=== PATIENT | male | born 1960 | race Caucasian/White ===

== ENCOUNTER 2018-02-27 10:28 | Emergency (ER) | payer BC ==
[2018-02-27] MEDS ORDERED: Midazolam HCl 5 mg/ml Vial ONE (10:57)
[2018-02-27] MEDS ORDERED: Fentanyl 100 MCG/2 ML VIAL ONE (10:59)
[2018-02-27 11:11] LABS: #Basophils 0.1 thou/uL (0.0-0.2); #Eosinphils 0.1 thou/uL (0.0-0.7); #Lymphocytes 2.5 thou/uL (1.20-3.40); #Monocytes 0.7 thou/uL (0.11-0.59); #Neutrophils 6.5 thou/uL (1.40-6.50); %Basophils 0.8 % (0.0-1.0); %Eosinophils 0.9 % (0.0-10.0); %Lymphocytes 25.6 % (21.0-51.0); %Monocytes 6.6 % (0.0-10.0); %Neutrophils 66.2 % (42.0-75.0); Hemoglobin 17.2 g/dL (14.0-18.0); Mean Corpuscular HGB CONC 32.1 g/dL (32.0-36.0); Mean Corpuscular Hemoglobin 30.8 pg (27.0-31.0); Mean Corpuscular Volume 95.8 fL (78.0-98.0); Mean Platelet Volume 7.7 fL (7.4-10.4); Platelet Count 265 thou/uL (130-400); RBC Distribution Width 11.9 % (11.5-14.5); Red Blood Cell (RBC) Count 5.58 mill/uL (4.70-6.10); White Blood Cell (WBC) Count 9.8 thou/uL (4.8-10.8)
[2018-02-27] MEDS ORDERED: Metoprolol Tartrate 5 MG/5 ML VIAL ONE (11:18)
[2018-02-27 11:33] LABS: ALT (SGPT) 26 U/L (8-55); AST (SGOT) 25 U/L (5-34); Albumin 4.8 g/dL (3.5-5.0); Alkaline Phosphatase 70 U/L (40-150); Anion Gap 13 mmol/L (10-20); BUN (Urea Nitrogen) 19 mg/dL (8.4-25.7); Bilirubin, Total 0.8 mg/dL (0.2-1.2); CK (CPK) 137 U/L (30-200); Calc. Creatinine Clearance 0 mL/min (70-130); Calcium 10.1 mg/dL (7.8-10.44); Carbon Dioxide 24 mmol/L (22-29); Chloride 105 mmol/L (98-107); Estimated GFR-MDRD 80; Globulin 3.3 g/dL (2.4-3.5); Glucose 130 mg/dL (70-105); Lipase 89 U/L (8-78); Potassium 4.1 mmol/L (3.5-5.1); Protein, Total 8.1 g/dL (6.0-8.3); Sodium 138 mmol/L (136-145)
[2018-02-27 11:37] LABS: CKMB 3.4 ng/mL (0-6.6); Troponin I Less than 0.010 ng/mL (< 0.028)
--- NOTE | 2018-02-27 11:42 | RAD ---
PORTABLE CHEST 1 VIEW: Date: 02/27/18 Time: 1109 hours HISTORY: Chest pain. Atrial fibrillation. FINDINGS: Comparison made with exam of 02/18/11. The heart size is borderline. No confluent areas of consolidation, pneumothoraces, ramesh pulmonary ed maninder, or pleural effusions seen. IMPRESSION: No acute process. POS: JACKLYN
[2018-02-27] MEDS ORDERED: Apixaban 5 MG TAB PO SCH (12:45)
== END 2018-02-27 13:43 | disposition home or self-care (01) ==
LOC: ERS 10:28
DX: I48.91 Unspecified atrial fibrillation (principal); E78.5 Hyperlipidemia, unspecified; I10 Essential (primary) hypertension
CPT/HCPCS: 71045; 80053; 82553; 83690; 83880; 84484; 85025; 92960; 93005; 96374; 99152; 99153; J2250; J3010

== ENCOUNTER 2018-04-04 13:50 | Emergency (ER) | payer BC ==
[2018-04-04] MEDS ORDERED: Midazolam HCl 2 mg/2 ml Vial ONE (14:40)
[2018-04-04] MEDS ORDERED: Fentanyl 100 MCG/2 ML VIAL ONE (14:40)
[2018-04-04] MEDS ORDERED: Magnesium 2 GM/50 ML BAG (IN WATER) ONE (14:50)
[2018-04-04] MEDS ORDERED: Apixaban 5 MG TAB PO SCH (15:00)
== END 2018-04-04 16:34 | disposition home or self-care (01) ==
LOC: ERS 13:50
DX: I48.91 Unspecified atrial fibrillation (principal); E78.5 Hyperlipidemia, unspecified; I10 Essential (primary) hypertension; Z79.899 Other long term (current) drug therapy
CPT/HCPCS: 92960; 93005; 96361; 96374; 99152; J2250; J3010

== ENCOUNTER 2018-04-21 07:21 | Observation (INO) | payer BC ==
[2018-04-21 07:57] LABS: #Eosinphils 0.1 thou/uL (0.0-0.7); #Monocytes 0.6 thou/uL (0.11-0.59); %Basophils 0.3 % (0.0-1.0); %Eosinophils 1.5 % (0.0-10.0); %Lymphocytes 25.9 % (21.0-51.0); %Monocytes 7.3 % (0.0-10.0); %Neutrophils 64.9 % (42.0-75.0); Mean Corpuscular HGB CONC 33.2 g/dL (32.0-36.0); Mean Corpuscular Hemoglobin 31.8 pg (27.0-31.0); Mean Corpuscular Volume 95.8 fL (78.0-98.0); Mean Platelet Volume 7.1 fL (7.4-10.4); Platelet Count 234 thou/uL (130-400); RBC Distribution Width 11.7 % (11.5-14.5); Red Blood Cell (RBC) Count 4.71 mill/uL (4.70-6.10); White Blood Cell (WBC) Count 7.7 thou/uL (4.8-10.8)
[2018-04-21] MEDS ORDERED: Lidocaine 1% (PF) 30 ML VIAL ONE (07:58)
[2018-04-21 08:06] LABS: PTT 30.2 SEC (22.9-36.1); Prothrombin Time 13.7 SEC (12.0-14.7)
[2018-04-21 08:17] LABS: Anion Gap 13 mmol/L (10-20); BUN (Urea Nitrogen) 20 mg/dL (8.4-25.7); Calc. Creatinine Clearance 132 mL/min (70-130); Calcium 9.6 mg/dL (7.8-10.44); Carbon Dioxide 22 mmol/L (22-29); Chloride 107 mmol/L (98-107); Estimated GFR-MDRD 89; Glucose 123 mg/dL (70-105); Sodium 138 mmol/L (136-145)
[2018-04-21] MEDS ORDERED: Fentanyl 100 MCG/2 ML VIAL ONE (09:49)
[2018-04-21] MEDS ORDERED: Heparin 10,000 UNITS/1 ML VIAL ONE ×2 (09:49→12:28)
[2018-04-21] MEDS ORDERED: Promethazine HCl 25 MG/ML VIAL IM PRN (10:38)
[2018-04-21] MEDS ORDERED: Ondansetron HCl/PF 4 MG/2 ML Vial IVP PRN (10:38)
[2018-04-21] MEDS ORDERED: Promethazine HCl 25 MG/ML VIAL SLOW IVP PRN (10:38)
[2018-04-21] MEDS ORDERED: Meperidine HCl/PF 25 MG/ML VIAL SLOW IVP PRN (10:38)
[2018-04-21] MEDS ORDERED: Isoproterenol 0.2 MG/1 ML AMP ONE (10:41)
--- NOTE | 2018-04-21 10:42 | CT ---
CT CHEST WITHOUT CONTRAST: CTA CHEST WITH IV CONTRAST: HISTORY: Coronary mapping for ablation. FINDINGS: Please see the airplane mechanic's report for cardiac and coronary findings. Neurovascular calcifications without evidence of aneurysmal dilatation of the thoracic aorta. No int imal flap is seen to suggest dissection. No pleural or pericardial effusions are identified. The vi sualized lung oscar are clear. Degenerative changes are present in the spine. POS: JACKLYN
[2018-04-21] MEDS ORDERED: Phenylephrine HCL 10 MG/ML VIAL ONE (10:48)
[2018-04-21] MEDS ORDERED: Iopamidol 370 76% 100 ML VIAL ONE (10:59)
[2018-04-21] MEDS ORDERED: Heparin 25,000 units/D5W 500 ML ONE (11:35)
[2018-04-21] MEDS ORDERED: Protamine Sulfate 50 MG/5 ML VIAL ONE ×2 (12:40→13:12)
--- NOTE | 2018-04-21 12:43 | OP ---
DATE OF PROCEDURE: 04/21/2018 SURGEON: Dr. Terry Dominguez PROCEDURE: Electrophysiology study and radiofrequency ablation/pulmonary venous isolation. REFERRING PHYSICIAN: Dr. Alex Carney REASON FOR PROCEDURE: Mr. Spangler is a 57-year-old man with prior history of paroxysmal atrial arrhy thmias. He had a pulmonary venous isolation procedure in 2013. Now here with an episode of recurren ce, likely to eventually need medical therapy and highly symptomatic while having the episodes, curre ntly in sinus rhythm. The patient was on chronic Eliquis anticoagulation, it is on hold today this m orning only. PROCEDURE: The patient received deep sedation by Anesthesia specialist with general anesthesia. Aft er adequate level of sedation achieved, the left and right femoral vein was prepped and draped and an esthetized with subcutaneous lidocaine and with ultrasound guidance, the left and right femoral veins were cannulated x2, both sides. An 11 Russian and Preface sheath was introduced in the left femoral vein, which was used to advance the ice catheter to the right atrium which was used to minimize durin g the procedure, transseptal procedure as well as any effusion development during the case. The Pref ro catheter was used to advance the Duodeca catheter to the CS and right atrial position. The right venous sheath were used to advance a ThermoCool SF ST catheter which was used to image the right atr ium. Following that, the 8 Russian sheaths were exchanged to a SL1 transseptal sheath and under ultra sound guidance, transseptal punctures were performed x2. Heparin was administered at this point keep ing the ACT over 300 for targeting 350 throughout the case. A left atrial map was obtained with a 3D system. The left superior, left inferior and the right infe rior veins were found reconnected and also posterior wall was found to be connected. Ablation of all these areas were performed, isolation was achieved in all 4 veins and the posterior wall. Following that burst atrial pacing induced only nonsustained atrial fibrillation. Isuprel was administered an d upon venous reconnections were ablated. The total ablation time was 5 minutes 42 seconds. Total of 15 lesions delivered at 42 parker. The EP study was also performed with the following findings; baseline cycle length sinus rhythm 658 m illiseconds, OR 148 milliseconds, OR 63 milliseconds, QT 444 milliseconds, AH 95 milliseconds, HV 52 milliseconds. VA conduction test was performed with a Wenckebach cycle length V8 was 320 millisecond s and antegrade Wenckebach cycle was 318 seconds. No evidence of sleep apnea was seen. AV hilary ERP was found to be 600/280 milliseconds with no evidence of dual pathway physiology seen. CONCLUSION: 1. Successful re-isolation of pulmonary veins and the posterior wall. 2. Normal sinus and AV hilary function. 3. No sustained inducible arrhythmias. 4. No evidence of accessory pathway or dual AV hilary physiology present. PLAN: Resume anticoagulation for a period of 3 months and rhythm medication. Continue monitoring.
[2018-04-21 14:38] VITALS: BMI 32.1
[2018-04-21] MEDS ORDERED: PHENYLEPHRINE-NS 100 MCG/ML 10 ML SYRINGE ONE (15:08)
[2018-04-21] MEDS ORDERED: PROPOFOL 200 MG/20 ML VIAL ONE (15:08)
[2018-04-21] MEDS ORDERED: Succinylcholine Chloride 20 MG/ML 10 ml SYRINGE FS ONE (15:08)
[2018-04-21] MEDS ORDERED: Lidocaine 1% PF 5 ML VIAL ONE (15:08)
[2018-04-21] MEDS ORDERED: Ondansetron PF 4 MG/2 ML Vial ONE (15:08)
[2018-04-21] MEDS ORDERED: ePHEDrine/0.9% NaCl/PF SYRINGE 50 mg/10 ml ONE (15:08)
[2018-04-21] MEDS ORDERED: Apixaban 5 MG TAB PO SCH (18:00)
[2018-04-21] MEDS ORDERED: Ezetimibe 10 MG TAB PO SCH (21:00)
[2018-04-21] MEDS ORDERED: Lysine 500 MG TAB PO SCH (21:00)
[2018-04-21] MEDS ORDERED: Lisinopril/Hydrochlorothiazide 20 mg/12.5 mg Tablet PO SCH (21:00)
[2018-04-21] MEDS ORDERED: Atorvastatin Calcium 40 MG TAB PO SCH (21:00)
[2018-04-22] MEDS ORDERED: Apixaban 5 MG TAB PO SCH (09:00)
[2018-04-22 11:53] VITALS: BP 120/58; TEMP 99
--- NOTE | 2018-04-22 14:08 | DIS ---
DATE OF ADMISSION: 04/21/2018 DATE OF DISCHARGE: 04/22/2018 ADMITTING PHYSICIAN: Dr. Dominguez PROCEDURE PERFORMED: Electrophysiology study and radiofrequency ablation, pulmonary venous isolation redo ablation. CONDITION AT DISCHARGE: Stable. PRESENT ILLNESS: Mr. Spangler is an 84-year-old gentleman with a prior history of paroxysmal atrial a rrhythmias. He underwent initial left atrial ablation in 2013 for atrial fibrillation. He has now b een dealing with a late recurrence, and breakthrough arrhythmias and elected to go for a redo left at rial ablation. He was continued on Eliquis for anticoagulation and metoprolol was held before his pr ocedure. During his EP study he underwent successful re-isolation of the left pulmonary veins and th e right superior pulmonary vein. Normal sinus and AV hilary function was demonstrated. He is not ind ucible for additional sustained arrhythmias. There is no evidence of accessory pathway or dual AV no mahi physiology present. The patient has been tolerating p.o. intake. He is voiding normally, although with some pain after h is recent catheter removal. He also has a mildly sore throat after being intubated. He is ambulatin g normally about the ortiz and feels stable for discharge. PLAN: The plan for after ablation is for continued anticoagulation for at least 3 months and resumin g metoprolol. SUBJECTIVE: He denies heart racing, palpitations, chest pain or pressure, syncope, near syncope, str sandor or stroke like symptoms. Positive for pain with urination, but denies frequency, hesitancy or ur gency. Positive for mild discomfort in his throat after recent intubation. Denies blood in his urin e as well. OBJECTIVE: VITAL SIGNS: Temperature 98.2, pulse 61, blood pressure 136/71, respirations 18, oxygen is 94% on ro om air. GENERAL: The patient is alert and oriented. Speech clear. Affect is appropriate. He is well groom ed and well nourished. LUNGS: Clear to auscultation bilaterally without wheezes, crackles or rhonchi. CARDIOVASCULAR: Heart rate is irregularly irregular without murmur, rub or gallop. Hepatojugular re flex is negative. ABDOMEN: Soft, nontender without palpable masses. Bilateral groin sites are stable without bleeding , hematoma or complications post-access. NEUROLOGIC: Grossly intact and nonfocal. DISCHARGE INSTRUCTIONS: Discharge instructions are detailed in the discharge packet, I have gone ove r them with the patient. No lifting more than 15 pounds x1 week, no soaking baths for 1 week. October r esume regular activity gradually and as tolerated after one week's time and groin sites have healed. DISCHARGE MEDICATIONS: 1. Will resume home medications as previously taken and currently has metoprolol 25 mg listed, but fede lenz has been taking 12.5 mg. 2. Atorvastatin calcium 40 mg p.o. daily. 3. Eliquis 5 mg p.o. b.i.d. 4. Lisinopril/hydrochlorothiazide combination 1 tab p.o. q.p.m. 5. ____ 10 mg q.p.m. 6. Omeprazole 10 mg q.p.m. 7. Metoprolol succinate 12.5 mg q.p.m. 8. Lysine 1000 mg q.p.m. 9. Vitamin D daily. 10. Carafate (new prescription) 1 gram p.o. q.i.d.
--- NOTE | 2018-04-27 21:08 | EKG ---
Test Reason : PREOP Blood Pressure : / mmHG Vent. Rate : 064 BPM Atrial Rate : 064 BPM P-R Int : 140 ms QRS Dur : 100 ms QT Int : 422 ms P-R-T Axes : 015 034 026 degrees QTc Int : 435 ms Normal sinus rhythm Incomplete right bundle branch block Borderline ECG When compared with ECG of 04-APR-2018 15:22, (Unconfirmed) T wave amplitude has increased in Anterior leads Confirmed by NEENA ROSE (2) on 04/27/2018 9:07:50 PM Referred By: DRAKE Confirmed By:NEENA ROSE
--- NOTE | 2018-04-27 21:27 | EKG ---
Test Reason : POST ABLATION Blood Pressure : / mmHG Vent. Rate : 062 BPM Atrial Rate : 062 BPM P-R Int : 158 ms QRS Dur : 106 ms QT Int : 436 ms P-R-T Axes : 061 067 037 degrees QTc Int : 442 ms Normal sinus rhythm Incomplete right bundle branch block Borderline ECG When compared with ECG of 21-APR-2018 08:01, (Unconfirmed) No significant change was found Confirmed by NEENA ROSE (2) on 04/27/2018 9:26:49 PM Referred By: DRAKE Confirmed By:NEENA ROSE
--- NOTE | 2018-04-27 21:47 | EKG ---
Test Reason : Blood Pressure : / mmHG Vent. Rate : 059 BPM Atrial Rate : 059 BPM P-R Int : 144 ms QRS Dur : 100 ms QT Int : 420 ms P-R-T Axes : 007 042 019 degrees QTc Int : 415 ms Sinus bradycardia Incomplete right bundle branch block Borderline ECG When compared with ECG of 21-APR-2018 14:00, (Unconfirmed) No significant change was found Confirmed by NEENA ROSE (2) on 04/27/2018 9:46:52 PM Referred By: DRAKE Confirmed By:NEENA ROSE
== END 2018-04-22 14:29 | disposition home or self-care (01) ==
LOC: CCL 07:21 → 2SW 14:31
PROVIDERS: ADMIT Internal Medicine Cardiovascular Disease; ATTEND Internal Medicine Cardiovascular Disease
PROC: 02583ZZ Destruction of Conduction Mechanism, Percutaneous Approach (ICD-10-PCS; principal; 2018-04-22)
PROC: 02K83ZZ Map Conduction Mechanism, Percutaneous Approach (ICD-10-PCS; 2018-04-22)
PROC: 4A023FZ Measurement of Cardiac Rhythm, Percutaneous Approach (ICD-10-PCS; 2018-04-22)
PROC: 4A0234Z Measurement of Cardiac Electrical Activity, Percutaneous Approach (ICD-10-PCS; 2018-04-22)
DX: I48.0 Paroxysmal atrial fibrillation (principal); Z79.01 Long term (current) use of anticoagulants; Z79.899 Other long term (current) drug therapy
CPT/HCPCS: 36415; 71275; 76942; 80048; 85025; 85347; 85610; 85730; 93005; 93010; 93613; 93623; 93656; 93662; 94660; C1730; C1731; C1732; C1759; C1769; G0378; J1644; J2001; J2370; J2405; J2704; J2720; J3010

== ENCOUNTER 2019-06-06 00:32 | Emergency (ER) | payer BC ==
[2019-06-06] MEDS ORDERED: Midazolam HCl 2 mg/2 ml Vial ONE (00:51)
[2019-06-06 01:09] LABS: #Basophils 0.1 thou/uL (0.0-0.2); #Eosinphils 0.2 thou/uL (0.0-0.7); #Lymphocytes 3.2 thou/uL (1.20-3.40); #Monocytes 0.7 thou/uL (0.11-0.59); #Neutrophils 6.4 thou/uL (1.40-6.50); %Basophils 0.8 % (0.0-1.0); %Eosinophils 2.3 % (0.0-10.0); %Lymphocytes 29.7 % (21.0-51.0); %Neutrophils 60.2 % (42.0-75.0); Hemoglobin 16.6 g/dL (14.0-18.0); Mean Corpuscular HGB CONC 34.8 g/dL (32.0-36.0); Mean Corpuscular Hemoglobin 32.6 pg (27.0-31.0); Mean Corpuscular Volume 93.7 fL (78.0-98.0); Mean Platelet Volume 7.7 fL (7.4-10.4); Platelet Count 251 thou/uL (130-400); RBC Distribution Width 11.6 % (11.5-14.5); Red Blood Cell (RBC) Count 5.08 mill/uL (4.70-6.10); White Blood Cell (WBC) Count 10.6 thou/uL (4.8-10.8)
[2019-06-06 01:20] LABS: ALT (SGPT) 32 U/L (8-55); AST (SGOT) 23 U/L (5-34); Albumin 4.4 g/dL (3.5-5.0); Alkaline Phosphatase 86 U/L (40-110); Anion Gap 14 mmol/L (10-20); BUN (Urea Nitrogen) 19 mg/dL (8.4-25.7); Bilirubin, Total 0.4 mg/dL (0.2-1.2); CK (CPK) 106 U/L (30-200); Calc. Creatinine Clearance 0 mL/min (70-130); Carbon Dioxide 28 mmol/L (22-29); Chloride 105 mmol/L (98-107); Estimated GFR-MDRD 72; Globulin 3.9 g/dL (2.4-3.5); Glucose 143 mg/dL (70-105); Potassium 3.9 mmol/L (3.5-5.1); Protein, Total 8.3 g/dL (6.0-8.3); Sodium 143 mmol/L (136-145)
[2019-06-06 01:27] LABS: INR-International Normal Ratio 0.9; Prothrombin Time 11.6 SEC (12.0-14.7)
== END 2019-06-06 01:57 | disposition home or self-care (01) ==
LOC: ERS 00:32
DX: I48.91 Unspecified atrial fibrillation (principal); I49.9 Cardiac arrhythmia, unspecified; E78.5 Hyperlipidemia, unspecified; I10 Essential (primary) hypertension; Z79.01 Long term (current) use of anticoagulants; Z79.899 Other long term (current) drug therapy
CPT/HCPCS: 80053; 82550; 84484; 85025; 85610; 85730; 93005; 96360; 99152; J2250

== ENCOUNTER 2020-05-08 01:25 | Emergency (ER) | payer BC ==
[2020-05-08 02:09] LABS: #Basophils 0.1 thou/uL (0.0-0.2); #Eosinphils 0.3 thou/uL (0.0-0.7); #Lymphocytes 3.6 thou/uL (1.20-3.40); #Monocytes 0.8 thou/uL (0.11-0.59); #Neutrophils 6.8 thou/uL (1.40-6.50); %Basophils 0.8 % (0.0-1.0); %Eosinophils 2.3 % (0.0-10.0); %Lymphocytes 31.3 % (21.0-51.0); %Monocytes 7.1 % (0.0-10.0); %Neutrophils 58.5 % (42.0-75.0); Hemoglobin 15.3 g/dL (14.0-18.0); Mean Corpuscular Hemoglobin 32.1 pg (27.0-31.0); Mean Corpuscular Volume 94.4 fL (78.0-98.0); Mean Platelet Volume 7.4 fL (7.4-10.4); Platelet Count 259 thou/uL (130-400); RBC Distribution Width 11.7 % (11.5-14.5); Red Blood Cell (RBC) Count 4.78 mill/uL (4.70-6.10); White Blood Cell (WBC) Count 11.6 thou/uL (4.8-10.8)
[2020-05-08] MEDS ORDERED: PROPOFOL 20 ML ONE (02:22)
[2020-05-08 02:37] LABS: ALT (SGPT) 35 U/L (8-55); AST (SGOT) 25 U/L (5-34); Alkaline Phosphatase 63 U/L (40-110); Anion Gap 15 mmol/L (10-20); BUN (Urea Nitrogen) 17 mg/dL (8.4-25.7); Bilirubin, Total 0.5 mg/dL (0.2-1.2); Calc. Creatinine Clearance 0 mL/min (70-130); Calcium 8.9 mg/dL (7.8-10.44); Carbon Dioxide 25 mmol/L (22-29); Chloride 105 mmol/L (98-107); Globulin 3.3 g/dL (2.4-3.5); Glucose 170 mg/dL (70-105); Potassium 4.1 mmol/L (3.5-5.1); Protein, Total 7.3 g/dL (6.0-8.3); Sodium 141 mmol/L (136-145)
--- NOTE | 2020-05-08 09:34 | RAD ---
PORTABLE CHEST: HISTORY: Tachycardia. FINDINGS: Lungs appear clear of infiltrate. Heart and mediastinum unremarkable. Vascularity is upper normal. IMPRESSION: No acute process. POS: AGW
== END 2020-05-08 03:59 | disposition home or self-care (01) ==
LOC: ERS 01:25
DX: I48.91 Unspecified atrial fibrillation (principal); E78.5 Hyperlipidemia, unspecified; I10 Essential (primary) hypertension; Z79.899 Other long term (current) drug therapy
CPT/HCPCS: 36415; 71045; 80053; 85025; 92960; 93005; 96374; J2704

== ENCOUNTER 2021-03-04 01:29 | Emergency (ER) | payer BC ==
[2021-03-04 02:18] LABS: #Basophils 0.1 thou/uL (0.0-0.2); #Eosinphils 0.2 thou/uL (0.0-0.7); #Lymphocytes 3.1 thou/uL (1.20-3.40); #Monocytes 0.7 thou/uL (0.11-0.59); #Neutrophils 5.1 thou/uL (1.40-6.50); %Basophils 1.5 % (0.0-1.0); %Eosinophils 1.9 % (0.0-10.0); %Lymphocytes 33.5 % (21.0-51.0); %Monocytes 7.4 % (0.0-10.0); %Neutrophils 55.7 % (42.0-75.0); Hemoglobin 15.5 g/dL (14.0-18.0); Mean Corpuscular HGB CONC 34.5 g/dL (32.0-36.0); Mean Corpuscular Hemoglobin 32.9 pg (27.0-31.0); Mean Corpuscular Volume 95.3 fL (78.0-98.0); Mean Platelet Volume 7.5 fL (7.4-10.4); Platelet Count 208 thou/uL (130-400); Red Blood Cell (RBC) Count 4.73 mill/uL (4.70-6.10); White Blood Cell (WBC) Count 9.1 thou/uL (4.8-10.8)
[2021-03-04] MEDS ORDERED: PROPOFOL 20 ML ONE (02:31)
[2021-03-04 02:38] LABS: ALT (SGPT) 20 U/L (8-55); AST (SGOT) 17 U/L (5-34); Albumin 3.9 g/dL (3.4-4.8); Alkaline Phosphatase 59 U/L (40-110); Anion Gap 14 mmol/L (10-20); BUN (Urea Nitrogen) 19 mg/dL (8.4-25.7); Bilirubin, Total 0.6 mg/dL (0.2-1.2); Calc. Creatinine Clearance 0 mL/min (70-130); Calcium 9.1 mg/dL (7.8-10.44); Carbon Dioxide 21 mmol/L (23-31); Chloride 109 mmol/L (98-107); Glucose 146 mg/dL (80-115); Protein, Total 6.9 g/dL (5.8-8.1); Sodium 140 mmol/L (136-145)
== END 2021-03-04 04:02 | disposition home or self-care (01) ==
LOC: ERS 01:29
DX: I48.91 Unspecified atrial fibrillation (principal); I10 Essential (primary) hypertension; E78.5 Hyperlipidemia, unspecified; Z79.899 Other long term (current) drug therapy
CPT/HCPCS: 71045; 80053; 84484; 85025; 92960; 93005; J2704

== ENCOUNTER 2021-11-23 08:25 | Emergency (ER) | payer BC ==
[2021-11-23] MEDS ORDERED: PROPOFOL 20 ML ONE (09:07)
[2021-11-23 09:33] LABS: #Basophils 0.1 thou/uL (0.0-0.2); #Eosinphils 0.1 thou/uL (0.0-0.7); #Lymphocytes 2.5 thou/uL (1.20-3.40); #Monocytes 0.5 thou/uL (0.11-0.59); %Basophils 1.6 % (0.0-1.0); %Eosinophils 1.5 % (0.0-10.0); %Neutrophils 54.9 % (42.0-75.0); Hemoglobin 16.2 g/dL (14.0-18.0); Mean Corpuscular HGB CONC 33.8 g/dL (32.0-36.0); Mean Corpuscular Hemoglobin 32.7 pg (27.0-31.0); Mean Corpuscular Volume 96.6 fL (78.0-98.0); Mean Platelet Volume 7.6 fL (7.4-10.4); Platelet Count 209 thou/uL (130-400); RBC Distribution Width 11.6 % (11.5-14.5); Red Blood Cell (RBC) Count 4.95 mill/uL (4.70-6.10); White Blood Cell (WBC) Count 7.2 thou/uL (4.8-10.8)
[2021-11-23 09:56] LABS: ALT (SGPT) 38 U/L (8-55); AST (SGOT) 23 U/L (5-34); Albumin 4.3 g/dL (3.4-4.8); Alkaline Phosphatase 69 U/L (40-110); Anion Gap 13 mmol/L (10-20); BUN (Urea Nitrogen) 19 mg/dL (8.4-25.7); Calc. Creatinine Clearance 0 mL/min (70-130); Calcium 9.8 mg/dL (7.8-10.44); Carbon Dioxide 27 mmol/L (23-31); Chloride 102 mmol/L (98-107); Globulin 2.9 g/dL (2.4-3.5); Glucose 284 mg/dL (80-115); Magnesium 1.9 mg/dL (1.6-2.6); Potassium 4.3 mmol/L (3.5-5.1); Protein, Total 7.2 g/dL (5.8-8.1); Sodium 138 mmol/L (136-145)
== END 2021-11-23 12:39 | disposition home or self-care (01) ==
LOC: ERS 08:25
DX: I48.91 Unspecified atrial fibrillation (principal); E78.5 Hyperlipidemia, unspecified; I10 Essential (primary) hypertension; Z79.899 Other long term (current) drug therapy; Z79.82 Long term (current) use of aspirin
CPT/HCPCS: 71045; 80053; 83735; 84484; 85025; 92960; 93005; 94760; 99152; 99153; J2704

== ENCOUNTER 2021-12-28 06:26 | Emergency (ER) | payer BC ==
[2021-12-28] MEDS ORDERED: Propofol 1,000 MG/100 ML VIAL IV ONE (07:18)
[2021-12-28] MEDS ORDERED: PROPOFOL 20 ML ONE (07:25)
[2021-12-28] MEDS ORDERED: Naloxone HCl 2 mg/2 ml Syringe ONE (07:55)
== END 2021-12-28 09:11 | disposition home or self-care (01) ==
LOC: ERS 06:26
DX: I48.91 Unspecified atrial fibrillation (principal); E78.5 Hyperlipidemia, unspecified; I10 Essential (primary) hypertension; Z79.82 Long term (current) use of aspirin; Z79.899 Other long term (current) drug therapy
CPT/HCPCS: 92960; 93005; 99152; J2310; J2704

== ENCOUNTER 2025-02-21 04:01 | Emergency (ER) | payer OTHER, SELFPAY ==
[2025-02-21 05:19] LABS: #Basophils 0.04 10x3/uL (0.0-0.2); #Eosinophils 0.25 10x3/uL (0.0-0.7); #Monocytes 0.78 10x3/uL (0.11-0.59); #Neutrophils 3.68 10x3/uL (1.40-6.50); %Basophils 0.5 % (0.0-1.0); %Eosinophils 3.0 % (0.0-10.0); %Lymphocytes 42.7 % (21.0-51.0); %Monocytes 9.4 % (0.0-10.0); %Neutrophils 44.2 % (42.0-75.0); Hematocrit 42.7 % (42.0-52.0); Hemoglobin 14.4 g/dL (14.0-18.0); Mean Corpuscular Hemoglobin 30.4 pg (27.0-31.0); Mean Corpuscular Volume 90.3 fL (78.0-98.0); Platelet Count 211 10x3/uL (130-400); Red Blood Cell (RBC) Count 4.73 mill/uL (4.70-6.10); White Blood Cell (WBC) Count 8.32 10x3/uL (4.8-10.8)
[2025-02-21] MEDS ORDERED: Etomidate 40 MG (20 mL) VIAL ONE (05:49)
[2025-02-21 05:53] LABS: ALT (SGPT) 25 U/L (Less than 45); AST (SGOT) 28 U/L (11-34); Albumin 3.9 g/dL (3.1-4.5); Alkaline Phosphatase 54 U/L (40-110); Anion Gap 12 mmol/L (10-20); BUN (Urea Nitrogen) 23 mg/dL (8.4-25.7); Bilirubin, Total 0.3 mg/dL (0.3-1.2); Calc. Creatinine Clearance 0 mL/min (70-130); Calcium 9.1 mg/dL (7.8-10.44); Carbon Dioxide 22 mmol/L (23-31); Chloride 109 mmol/L (98-107); Globulin 2.9 g/dL (2.4-3.5); Glucose 132 mg/dL (80-115); Potassium 3.8 mmol/L (3.5-5.1); Sodium 139 mmol/L (136-145)
== END 2025-02-21 07:05 | disposition home or self-care (01) ==
LOC: ERS 04:01
DX: I48.91 Unspecified atrial fibrillation (principal); I10 Essential (primary) hypertension
CPT/HCPCS: 80053; 85025; 92960; 93005; 99152

== ENCOUNTER 2025-05-11 06:20 | Emergency (ER) | payer MEDICARE, OTHER ==
[2025-05-11 06:45] LABS: #Basophils 0.06 10x3/uL (0.0-0.2); #Eosinophils 0.25 10x3/uL (0.0-0.7); #Monocytes 0.70 10x3/uL (0.11-0.59); #Neutrophils 4.79 10x3/uL (1.40-6.50); %Basophils 0.7 % (0.0-1.0); %Eosinophils 2.7 % (0.0-10.0); %Lymphocytes 36.5 % (21.0-51.0); %Monocytes 7.6 % (0.0-10.0); %Neutrophils 52.3 % (42.0-75.0); Hematocrit 45.2 % (42.0-52.0); Hemoglobin 14.8 g/dL (14.0-18.0); Mean Corpuscular Hemoglobin 30.1 pg (27.0-31.0); Mean Corpuscular Volume 92.1 fL (78.0-98.0); Platelet Count 236 10x3/uL (130-400); Red Blood Cell (RBC) Count 4.91 mill/uL (4.70-6.10); White Blood Cell (WBC) Count 9.16 10x3/uL (4.8-10.8)
[2025-05-11 07:00] LABS: ALT (SGPT) 33 U/L (Less than 45); AST (SGOT) 37 U/L (11-34); Albumin 4.0 g/dL (3.1-4.5); Alkaline Phosphatase 64 U/L (40-110); Anion Gap 13 mmol/L (10-20); BUN (Urea Nitrogen) 21 mg/dL (8.4-25.7); Bilirubin, Total 0.3 mg/dL (0.3-1.2); Calc. Creatinine Clearance 0 mL/min (70-130); Calcium 9.4 mg/dL (7.8-10.44); Carbon Dioxide 23 mmol/L (23-31); Chloride 111 mmol/L (98-107); Globulin 3.3 g/dL (2.4-3.5); Glucose 143 mg/dL (80-115); Potassium 3.8 mmol/L (3.5-5.1); Sodium 143 mmol/L (136-145)
[2025-05-11] MEDS ORDERED: Etomidate 40 MG (20 mL) VIAL ONE (07:27)
== END 2025-05-11 08:09 | disposition home or self-care (01) ==
LOC: ERS 06:20
DX: I48.91 Unspecified atrial fibrillation (principal); I10 Essential (primary) hypertension; E78.5 Hyperlipidemia, unspecified; Z55.6 Problems related to health literacy
CPT/HCPCS: 36415; 71045; 80053; 84484; 85025; 92960; 93005